=== PATIENT | female | born 1945 | race African-American/Black ===

== ENCOUNTER 2017-01-06 09:46 | Emergency (ER) | payer OTHER ==
[~2017-01-06] VITALS: Ht 175.3 cm; Wt 92.1 kg
[~2017-01-06 09:46] MED LIST: BENTYL20 MG PO; VICODIN5-300 PO; ZOFRAN ODT4 MG PO
--- NOTE | 2017-01-06 11:59 | ED UPPER/LOWER EXTREMITY COMPL ---
History of Present Illness General Chief Complaint: Lower Extremity Problems Stated Complaint: LFT LEG PAIN AND SWELLINGX 1MNTH Source: patient Exam Limitations: no limitations Vital Signs & Intake/Output Vital Signs & Intake/Output Vital Signs Date Time Temp Pulse Resp B/P B/P Pulse O2 O2 Flow FiO2 Mean Ox Delivery Rate 01/06 1606 98.1 82 18 128/74 97 Room Air 01/06 1405 97.4 76 17 128/68 97 Room Air 01/06 1145 97.6 88 18 132/70 100 Room Air 01/06 0951 97.1 80 18 136/76 98 Room Air Allergies Coded Allergies: oxycodone (From PERCOCET) (Intermediate, JITTERY 01/06/17) Reconcile Medications Hydrocodone/Acetaminophen (Vicodin 5-300 MG Tablet) 5 MG-300 MG TABLET 1 TAB PO BID PRN knee pain Triage Note: 71 YEAR OLD FEMALE STATES THAT ABOUT 1.5 MONTHS AGO SHE 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 SATTES THAT ONCE IN AWHILE HER KNEE IS GIVEN OUT ON HER. PAIN IS CONSTANT AND THROBBING. CALLED HER PMD SATURDAY WHO TOLE HER TO COME TO ER FOR EVALUATION. Triage Nurses Notes Reviewed? yes HPI: Ms. Nguyen is a 71 yo f w/ no significant PMH presenting to ED for L knee pain. Patient states that the pain has been there for over a month. She only recalls one minor traumatic incident to the anterior knee where she hit it on a small table. Patient denies any additional injuries. No redness or swelling. She endorses intermittent pain and stiffness to the medial portion of the left knee. The pain travels through the knee to popliteal fossa. Patient also endorses fullness to the popliteal fabby as well as some tenderness to palpation to the area. Patient denies fevers or chills. No other trauma. Patient is on anticoagulation. She has not noticed any lower extremity swelling or changes in the skin. Past History Travel History Traveled to [place] past 21 day No Medical History Any Pertinent Medical History? 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 No Review of Systems Review of Systems Constitutional: Reports: see HPI. Comments Review of systems: See HPI, All other systems negative. Constitutional, no chills fever or weight loss HEENT: No visual changes no sore throat no congestion Cardiovascular: No chest pain, palpitation , orthopnea or ankle swelling Skin, no jaundice no rashes Respiratory: No dyspnea cough sputum or hemoptysis GI: No nausea no vomiting : No dysuria No hematuria Musclokeletal: + L knee pain. No back pain, no neck pain Neurologic: No numbness, no confusion Psych: No stress anxiety or depression,. Heme/endocrine: No bruising, no bleeding no polyuria or polydipsia Immunology: No splenectomy or history of AIDS Physical Exam Physical Exam General Appearance: well developed/nourished, no apparent distress, alert, awake , comfortable Comments: HEENT: Normal EENT exam, extraocular motion intact, no nystagmus. Pupils equally round and reactive to light and accommodation. Nose is atraumatic. External auditory canal and Tympanic membranes clear. Pharynx normal. No swelling or edema. Neck: Supple, no lymphadenopathy, normal range of motion without pain or tenderness Back: Nontender, no CVA tenderness. Full range of motion Cardiovascular: Regular rate and rhythms no murmurs rubs or gallops, normal JVP Respiratory: Chest nontender. No respiratory distress.breath sounds clear to auscultation bilaterally Abdomen: Soft, nontender nondistended, no appreciable organomegaly. Normal bowel sounds. No ascites Upper extremity: Normal range of motion in bilateral upper extremities. Normal sensation. Strength is intact bilaterally and equally symmetric. Normal distal radial pulses bilaterally. Lower extremities: Normal range of motion of bilateral knees and ankles. Normal strength of bilateral lower extremities. Tenderness to palpation over medial surfaces of the left knee. No abnormal patellar movement. No edema, no calf tenderness to palpation, normal and equal pulses. No anterior drawer test or positive Jami test bilaterally. Neuro: Alert oriented x3, motor sensory normal, cranial nerves II through XII grossly intact. Skin: No appreciable rash on exposed skin, skin is warm and dry. Psych: Mood and affect is normal, memory and judgment is normal. Progress Differential Diagnosis: cellulitis, dislocation, DVT, fracture, sprain, tendon injury, osteoarthritis Plan of Care: Orders Procedure Date/time Status US-DUPLEX VENOUS EXTREM UNI 01/06 1218 Active AEROSOL (GEN) 01/06 1205 Complete AEROSOL (GEN) 01/06 1155 Complete AEROSOL (GEN) 01/06 1145 Complete Patient is generally well-appearing. No significant past medical problems. Or traumatic injury several weeks ago. Patient has been able to ambulate on bilateral lower extremities without issues although she does endorse tenderness to palpation over the medial joint line. There is no patellar abnormalities noted. No superficial skin changes or erythema or evidence of cellulitis. Negative anterior drawer test and posterior drawer test. Negative Jami test. No swelling noted to the knee. No obvious effusion. Will obtain x-ray to assess for possible hairline fracture. Will also obtain a left DVT ultrasound to assess for possible DVT as the patient does endorse the pain radiates through from the anterior medial joint line posteriorly to the back of the knee. She also endorses some posterior knee fullness. Possible Livingston's cyst however unable to palpate any discrete mass. (SHUKRI STEPHENSON,ELAINE) Diagnostic Imaging: Viewed by Me: Radiology Read, Ultrasound. Discussed w/RAD: Radiology Read, Ultrasound. Radiology Impression: no acute abnormality, no fracture CXR Impression: no acute abnormality, 1. No acute osseous injury at the left knee. 2. Tricompartmental osteoarthritis (moderate at patellofemoral and medial tibiofemoral compartments, and mild at the lateral tibiofemoral compartment)., No evidence for deep vein thrombosis. No popliteal cyst. Departure Departure Time of Disposition: 1608 Disposition: HOME OR SELF CARE Condition: Stable Clinical Impression Primary Impression: Left knee pain Qualifiers: Chronicity: acute Qualified Code: M25.562 - Pain in left knee Referrals: IMTIAZ CHAMBERS MD (PCP/Family) Additional Instructions: You do not have any fractures or blood clots in your leg. There is some significant arthritis seen within the knee. I would recommend you use some Vicodin that you have been prescribed today for the pain. In addition, it will be useful for use Motrin 600 mg every 6-8 hours for the pain as this will help with inflammation. Please follow-up with your primary care doctor as needed Departure Forms: Customer Survey General Discharge Information Prescriptions: Current Visit Scripts Hydrocodone/Acetaminophen (Vicodin 5-300 MG Tablet) 1 TAB PO BID PRN knee pain #15 TAB
--- NOTE | 2017-01-06 12:51 | RADIOLOGY REPORT ---
EXAMINATION: XR KNEE, LEFT CLINICAL INFORMATION: Medial knee pain after fall. COMPARISON: None TECHNIQUE: Four views of the left knee were obtained without weightbearing. FINDINGS: No acute fracture, malalignment, joint effusion or focal soft tissue swelling. On these nonweightbearing views, there is mild narrowing of the medial tibiofemoral joint space, marginal osteophyte formation and subchondral cystic change. There is osteophyte formation and subchondral cystic change of the patellofemoral joint, as well. Small marginal osteophytes are seen at the lateral compartment. IMPRESSION: 1. No acute osseous injury at the left knee. 2. Tricompartmental osteoarthritis (moderate at patellofemoral and medial tibiofemoral compartments, and mild at the lateral tibiofemoral compartment).
--- NOTE | 2017-01-06 15:49 | ULTRASOUND REPORT ---
EXAMINATION: LEFT LOWER EXTREMITY VENOUS ULTRASOUND CLINICAL INFORMATION: Rule out Livingston's cyst. Fall, pain to knee and calf and posterior knee. COMPARISON: None. TECHNIQUE: Doppler spectral analysis and color flow Doppler imaging was performed of the left lower extremity. Compression kaba scale and augmentation maneuvers were performed. FINDINGS: The left common femoral, femoral, and popliteal veins were well-identified and normal. The veins demonstrate normal compressibility and color fill-in. The calf veins are segmentally visualized and where they were seen they were likewise negative for thrombus. No popliteal cyst. IMPRESSION: No evidence for deep vein thrombosis. No popliteal cyst.
[2017-01-06 16:06] VITALS: BP 128/74
[2017-01-06] MEDS ORDERED: VICODIN 5-3001 EACH PO (16:11)
== END 2017-01-06 16:18 ==
LOC: ERH 09:46
DX: M25.562 Pain in left knee (principal)
CPT/HCPCS: 73560-LT

== ENCOUNTER 2018-05-20 11:30 | Emergency (ER) | payer OTHER ==
[~2018-05-20] VITALS: Ht 172.7 cm; Wt 93.0 kg
[~2018-05-20 11:30] MED LIST changes: +VICODIN 5-3001 EACH PO
[2018-05-20 12:00] LABS: ABSOLUTE BASOPHIL COUNT 0 /CUMM (0.0-0.2); ABSOLUTE EOSINOPHIL COUNT 0.1 /CUMM (0.0-0.7); ABSOLUTE GRANULOCYTE CT 5.9 /CUMM (1.4-6.5); ABSOLUTE LYMPH COUNT 3.9 /CUMM (1.2-3.4); ABSOLUTE MONOCYTE COUNT 0.5 /CUMM (0.10-0.60); BASOPHIL % 0.4 % (0.0-2.0); EOSINOPHIL % 0.9 % (0-5); GRANULOCYTE % 56.7 % (42.2-75.2); MEAN CORPUSCULAR HGB 28.7 PG (27.0-31.0); MEAN CORPUSCULAR HGB CONC 34.1 G/DL (33.0-37.0); MEAN CORPUSCULAR VOLUME 84.2 FL (81.0-99.0); MEAN PLATELET VOLUME 7.8 FL (7.4-10.4); RBC DISTRIBUTION WIDTH 14.4 % (11.5-14.5); RED BLOOD CELL CT 4.64 /CUMM (4.20-5.40); WHITE BLOOD CELL COUNT 10.5 /CUMM (4.8-10.8)
--- NOTE | 2018-05-20 12:22 | ED GENERAL ADULT ---
History of Present Illness General Chief Complaint: Chest Pain Stated Complaint: SIB PCP CHEST PAIN X4 DAYS, NOW SOB Source: patient Exam Limitations: no limitations Vital Signs & Intake/Output Vital Signs & Intake/Output Vital Signs Date Time Temp Pulse Resp B/P B/P Pulse O2 O2 Flow FiO2 Mean Ox Delivery Rate 05/20 1432 98.4 64 18 158/74 100 Room Air 05/20 1155 98 Room Air 05/20 1140 98.0 71 15 119/72 97 Room Air Room Air Allergies Coded Allergies: oxycodone (From PERCOCET) (Intermediate, JITTERY 01/06/17) Reconcile Medications Hydrocodone/Acetaminophen (Vicodin 5-300 MG Tablet) 5 MG-300 MG TABLET 1 TAB PO BID PRN knee pain Triage Note: PT TO ED FOR MIDSTERNAL CHEST PAIN X 4 DAYS BUT TODAY SOB. NO ACUTE DISTRESS NOTED IN TRIAGE. PAIN IS A PRESSURE AND RADIATES DOWN INTO ABD AND TO R SIDE. +NAUSEA, HAS BEEN TAKING LOTS OF TUMS. Triage Nurses Notes Reviewed? yes HPI: Pt is a 72 y/o F with no PMHx presenting with chest pain x 5 days. Pt states that on she was sitting at her desk when she felt a substernal pressure. Pt states that pain is constant, and radiates down to her abdomen. Pt admits to an associated nausea with a decreased appetite and bloating. Today at work, pt began to feel SOB while sitting so she decided to go to ED. Pt currently is not having any SOB. Pt has been taking pepcid, tums, pepto bismol without relief. Pt admits to poluria, but denies any V/D/C, fevers, chills, diaphoresis, palpitations, cough, recent travel, smoking. Past History Travel History Traveled to [place] past 21 day No Medical History Any Pertinent Medical History? 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 No Review of Systems Review of Systems Constitutional: Denies: see HPI. Respiratory: Reports: see HPI. Cardiovascular: Reports: see HPI. GI: Reports: see HPI. Genitourinary: Reports: see HPI. Physical Exam Physical Exam General Appearance: well developed/nourished, no apparent distress Head: atraumatic, normal appearance Eyes: Bilateral: normal appearance. Neck: normal inspection, supple Respiratory: normal breath sounds, lungs clear Cardiovascular: regular rate/rhythm, normal peripheral pulses, NMRG, Pain is reproducible on palpation of epigastric region Peripheral Pulses: 2+ radial (R), 2+ radial (L) Gastrointestinal: normal bowel sounds, soft, no organomegaly, Tender to epiastric palpation, no guarding, Nany's sign positive Skin: intact, normal color, warm/dry Core Measures ACS in differential dx? Yes CVA/TIA Diagnosis: No Sepsis Present: No Sepsis Focused Exam Completed? Yes Progress Differential Diagnoses I considered the following diagnoses in my evaluation of the patient: AMI, ACS, PE, cholecystitis, GERD Plan of Care: Orders Procedure Date/time Status TROPONIN LEVEL 05/20 114 Complete D-DIMER 05/20 1144 Complete COMPREHENSIVE METABOLIC PANEL 05/20 1144 Complete CBC WITHOUT DIFFERENTIAL 05/20 1144 Complete EKG 05/20 1132 Active Laboratory Tests 05/20/18 1153: Anion Gap 6, Estimated GFR 44 L, BUN/Creatinine Ratio 15.0, Glucose 104 H, Calcium 9.6, Total Bilirubin 0.5, AST 20, ALT 22, Alkaline Phosphatase 66, Troponin I < 0.01, Total Protein 7.0, Albumin 4.1, Globulin 2.9, Albumin/ Globulin Ratio 1.4, D-Dimer High Sensitivty 212, CBC w Diff NO MAN DIFF REQ, RBC 4.64, MCV 84.2, MCH 28.7, MCHC 34.1, RDW 14.4, MPV 7.8, Gran % 56.7, Lymphocytes % 36.9, Monocytes % 5.1, Eosinophils % 0.9, Basophils % 0.4, Absolute Granulocytes 5.9, Absolute Lymphocytes 3.9 H, Absolute Monocytes 0.5, Absolute Eosinophils 0.1, Absolute Basophils 0 Pt to have cardiac and biliary w/u with evaluation of LFT's Radiology Impression: RUQ u/s neg for cholecystitis CXR Impression: no acute abnormality Initial ED EKG: normal axis, normal intervals, NSR, no ST T wave changes Comments: Patient presented today for chest pain versus epigastric/right upper quadrant pain. Troponin and ECG were negative after several weeks of constant pain, making acute coronary syndrome very unlikely. I did offer hospitalization for cardiac observation and full rule out of ACS, but the patient has declined this offer with a full understanding of risks. We also obtained LFTs and a rather quadrant ultrasound which did not show evidence of acute biliary disease. I recommended that she follow up with Dr. Enamorado in primary care and with her button sawyer for reassessment and possible endoscopy. She has had an ulcer before and states that this feels similar to that. I urged her to return to the emergency department for any new or worsening symptoms. Departure Departure Time of Disposition: 1536 Disposition: HOME OR SELF CARE Condition: Stable Clinical Impression Primary Impression: Chest pain Qualifiers: Chest pain type: unspecified Qualified Code: R07.9 - Chest pain, unspecified Referrals: Louis Enamorado MD (PCP/Family) Additional Instructions: Please call Dr. Enamorado to make an appointment in the office for reassessment. Return to the emergency department for any new or worsening symptoms whatsoever. You may try Maalox for your pain in the event that it is from gastritis. Dr. Enamorado may wish to refer you to a button sawyer for further evaluation. Departure Forms: Customer Survey General Discharge Information Critical Care Note Critical Care Note Critical Care Time: non-applicable
[2018-05-20 12:23] LABS: PLATELET COUNT 238 /CUMM (130-400)
--- NOTE | 2018-05-20 13:59 | RADIOLOGY REPORT ---
EXAMINATION: XR CHEST CLINICAL INFORMATION: Shortness of breath COMPARISON: None TECHNIQUE: 2 views of the chest were obtained. FINDINGS: No significant abnormality is noted involving the heart, lungs, mediastinum, bony thorax or soft tissues. IMPRESSION: Unremarkable examination.
--- NOTE | 2018-05-20 14:18 | ULTRASOUND REPORT ---
EXAMINATION: US ABDOMEN LIMITED CLINICAL INFORMATION: Right upper quadrant pain. Presumptive diagnosis of biliary disease. COMPARISON: CT scan of the abdomen and pelvis dated 12/19/2014. TECHNIQUE: Real-time imaging of the right upper quadrant abdominal viscera. FINDINGS: PANCREAS: The pancreatic body and portions of the head and tail are visualized and appear slightly echogenic, perhaps related to fatty infiltration. Remainder of the pancreas is obscured by overlying bowel gas. LIVER: The liver is diffusely heterogeneous and echogenic in texture with significant attenuation of the sound being, consistent with diffuse hepatocellular disease, such as hepatic steatosis. Liver parenchyma detail is limited, but no definite focal mass is seen. The liver demonstrates normal size and contour. No focal lesion or intrahepatic biliary duct dilatation. GALLBLADDER: Normal. The gallbladder is physiologically distended without evidence of stones, sludge, polyps, wall thickening or pericholecystic fluid. COMMON BILE DUCT: Normal in caliber measuring 0.4 cm in diameter. RIGHT KIDNEY: Normal. No hydronephrosis. No renal calculi or focal parenchymal lesions. The kidney measures 10.1 cm in maximum dimension. FREE FLUID: None. IMPRESSION: 1. Diffuse hepatic steatosis with attenuation of sound beam penetration through the liver, causing suboptimal assessment of the liver parenchyma. No definite focal mass seen. 2. Pancreatic body and portions of the head and tail appear echogenic, perhaps related to fatty infiltration. Remainder of pancreas is obscured by bowel gas. 3. Otherwise unremarkable right upper quadrant ultrasound. Specifically, no evidence of gallbladder or biliary disease.
[2018-05-20 15:48] VITALS: BP 168/72
== END 2018-05-20 15:54 ==
LOC: ERH 11:30
PROVIDERS: Student in an Organized Health Care Education/Training Program
DX: R07.2 Precordial pain (principal); R06.02 Shortness of breath; R10.9 Unspecified abdominal pain
CPT/HCPCS: 71046; 93005; 93010